=== PATIENT | female | born 1980 | race American Indian/Alaskan Native ===

== ENCOUNTER → 2021-05-11 | Outpatient (CLI) | payer MEDICAID | END | disposition home or self-care (01) | LOC: SLR 11:00 | PROVIDERS: ATTEND Surgery | DX: G47.30 Sleep apnea, unspecified (principal) | CPT/HCPCS: G0399 ==

== ENCOUNTER 2021-06-21 06:49 | Day surgery (SDC) | payer MEDICAID ==
[2021-06-21] MEDS ORDERED: SODIUM CHLORIDE 0.9% 1000 ML 1,000 ML IV SCH (07:00)
--- NOTE | 2021-06-21 07:51 | Anesthesia Consultation ---
Anesthesia Consult and Med Hx Date of service: 06/21/21 - Airway Anesthetic Teeth Evaluation: Good ROM Head & Neck: Adequate Mental/Hyoid Distance: Adequate Mallampati Class: Class I Intubation Access Assessment: Good - Pre-Operative Health Status ASA Pre-Surgery Classification: ASA3 Proposed Anesthetic Plan: MAC - Pulmonary Hx Smoking: No Hx Respiratory Symptoms: No Hx Sleep Apnea: Yes (recent diagnosis; not yet started on CPAP) - Cardiovascular System Hx Hypertension: No Hx Heart Attack/AMI: No - Central Nervous System CVA: No - Endocrine Hx Renal Disease: No Hx Liver Disease: No Hx Insulin Dependent Diabetes: No Hx Non-Insulin Dependent Diabetes: No Hx Thyroid Disease: No - Other Systems Hx Obesity: Yes (BMI 53) - Additional Comments Anesthesia Medical History Comments: No hx anesthetic complications.
--- NOTE | 2021-06-21 07:51 | Anesthesia Day of Surgery ---
Anesthesia Day of Surgery - Day of Surgery Patient Examined: Yes Patient H&P Reviewed: Yes Patient is NPO: Yes
[2021-06-21] MEDS ORDERED: LIDOCAINE MPF (2%) 20 MG/1 ML VIAL 5 ML ONE (09:18)
[2021-06-21] MEDS ORDERED: propofoL 200 MG/20 ML VIAL IV ONE (09:19)
--- NOTE | 2021-06-21 09:49 | Discharge Summary ---
Providers - Providers Date of Admission: 06/21/2021 Date of discharge: 06/21/21 Attending physician: GEGE WYATT MD Primary care physician: KIM TURCIOS MD Hospitalization Reason for admission: pre-op egd Condition: Good Procedures: egd with bx Hospital course: Pt presented for a pre-op EGD as part of planning for up coming bariatric surgery. Procedure was uneventful and pt recovered well and was discharged to home. Disposition: 01 HOME / SELF CARE / HOMELESS Final Discharge Diagnosis (Prints w/discharge instructions): hx of gastric banding, gerd, morbid obesity Core Measure Documentation - Palliative Care Palliative Care/ Comfort Measures: Not Applicable - Core Measures Any of the following diagnoses?: none Exam - Physical Exam Narrative exam: unchanged from pre-op Plan Activity: advance as tolerated Diet: low carbohydrate Follow up with: KIM TURCIOS MD [Primary Care Provider] - 7 Days
--- NOTE | 2021-06-21 09:50 | Operative Report ---
Operative Report Operative Report: DATE: 06/21/2021 SURGERY: Upper endoscopy. SURGEON: Kenroy Denton M.D. PROCEDURE: EGD with biopsy PRE OP DX: morbid obesity, GERD, hx of gastric banding POST OP DX: morbid obesity, GERD, hx of gastric banding TYPE OF ANESTHESIA: MAC. ESTIMATED BLOOD LOSS: None. COMPLICATIONS: None. SPECIMENS REMOVED: antral biopsy FINDINGS: 1. Normal banded gastric anatomy 2. gastritix INDICATIONS:INDICATION FOR PROCEDURE: Patient is a 40-year-old female with a long history of morbid obesity. He has a hx of gastric banding and increased reflux. He is having EGD to evaluate his stomach anatomy prior to planning switching to another bariatric procedure. PROCEDURE DETAILS: After consent was reviewed, patient was taken back to the operating room where patient was placed in the left lateral decubitus position and a bite block was placed in the mouth. After a time-out was called, MAC anesthesia was initiated. I then passed the endoscope into his oropharynx, into her esophagus, visualized the entire esophagus, which was all within normal limits. Z-line was noted to about 36cm from incisors. There was an expected proximal stomach narrowing from external compression from the gastric band. I then visualized the stomach and the first portion of the duodenum and there were no abnormalities I could clearly visualize. A cold forceps biopsy of the antrum was taken and will be sent to pathology to evaluate for H.pylori. I then retroflexed the scope in the stomach and visualized the underside of the band. There were no signs of band erosion or malposition. I then desufflated the stomach and removed the endoscope. Patient tolerated procedure well and was transferred to recovery room in good and stable condition.
--- NOTE | 2021-06-21 12:51 | Post Anesthesia Evaluation ---
- Post Anesthesia Evaluation Patient Participated: Yes Airway Patent: Yes Stable Respiratory Function: Yes Nausea/Vomiting: No Temp > 96.8F: Yes Pain Manageable: Yes Adequeate Hydration: Yes Anesthesia Complications: No
[2021-06-21 13:27] VITALS: BP 117/69
== END 2021-06-21 10:20 | disposition home or self-care (01) ==
LOC: GIO 06:49
PROVIDERS: ATTEND Surgery
DX: E66.01 Morbid (severe) obesity due to excess calories (principal); K21.9 Gastro-esophageal reflux disease without esophagitis; K29.50 Unspecified chronic gastritis without bleeding; K31.89 Other diseases of stomach and duodenum; B96.81 Helicobacter pylori [H. pylori] as the cause of diseases classified elsewhere; G47.30 Sleep apnea, unspecified; F17.210 Nicotine dependence, cigarettes, uncomplicated; Z88.1 Allergy status to other antibiotic agents; Z88.8 Allergy status to other drugs, medicaments and biological substances; Z79.899 Other long term (current) drug therapy; Z98.890 Other specified postprocedural states; Z68.43 Body mass index [BMI] 50.0-59.9, adult
CPT/HCPCS: 43239; 88305; 88342; J2704; J3490; J7030; J7120; Q0162

== ENCOUNTER 2021-09-26 06:09 | Inpatient (IN) | payer MEDICAID ==
[2021-09-21 09:38] LABS: Hemoglobin 12.7 gm/dl (10.1-14.3); Mean Corpuscular HGB Conc 34 % (30-34); Mean Corpuscular Volume 83 fl (79-97); Platelet Count 297 K/mm3 (140-440); Red Blood Count 4.55 M/mm3 (3.65-5.03); Red Cell Distribution Width 14.7 % (13.2-15.2)
[2021-09-21 10:02] LABS: Alanine Aminotransferase 7 units/L (7-56); Albumin 4.3 g/dL (3.9-5); Blood Urea Nitrogen 16 mg/dL (7-17); Calcium 9.3 mg/dL (8.4-10.2); Hemolysis Index 0
[2021-09-21 10:05] LABS: BUN/Creatinine Ratio 23
--- NOTE | 2021-09-21 12:51 | Anesthesia Consultation ---
Anesthesia Consult and Med Hx Date of service: 09/26/21 - Airway Anesthetic Teeth Evaluation: Good ROM Head & Neck: Adequate Mental/Hyoid Distance: Adequate Mallampati Class: Class I Intubation Access Assessment: Probably Good - Pulmonary Exam CTA: Yes - Cardiac Exam Cardiac Exam: RRR - Pre-Operative Health Status ASA Pre-Surgery Classification: ASA3 Proposed Anesthetic Plan: General - Pulmonary Hx Smoking: No Hx Respiratory Symptoms: No (recent normal PFTs) Hx Sleep Apnea: Yes (+ CPAP; moderate per sleep study) - Cardiovascular System Hx Hypertension: No Hx Heart Attack/AMI: No (recent neg ST) - Central Nervous System CVA: No - Endocrine Hx Renal Disease: No Hx Liver Disease: No Hx Insulin Dependent Diabetes: No Hx Non-Insulin Dependent Diabetes: No Hx Thyroid Disease: No - Other Systems Hx Obesity: Yes (BMI 52) - Additional Comments Anesthesia Medical History Comments: No hx anesthetic complications. Preop medical, cardiac, and pulmonary studies on chart reviewed.
[~2021-09-26 06:09] MED LIST: ENOXAPARIN 40 MG/0.4 ML INJ SUB-Q NR; GABAPENTIN 500 MG/10 ML ORAL LIQD PO NR; LACTATED RINGERS 1,000 ML IV SCH; MIDAZOLAM 2 MG/2 ML INJ IV NR; SCOPOLAMINE TRANSDERMAL PATCH 72 HR TD NR; methOCARBAMOL 1,000 MG in SODIUM CHLORIDE 0.9% 250ML 250 ML IV SCH; metroNIDAZOLE/NS 500 MG/100 ML 500 MG/100 ML BAG IV NR
[2021-09-26] MEDS ORDERED: MAGNESIUM SULFATE 2 GM/50 ML BAG IV ONE (07:27)
[2021-09-26] MEDS ORDERED: SUGAMMADEX SODIUM 200 MG/2 ML VIAL IV ONE (07:27)
[2021-09-26] MEDS ORDERED: LIDOCAINE 2%/EPINEPHRINE 1:200,000 VIAL (20 ML) INFILTRATI ONE (07:28)
[2021-09-26] MEDS ORDERED: LIDOCAINE MPF (2%) 20 MG/1 ML VIAL 5 ML ONE ×5 (07:29→08:48)
[2021-09-26] MEDS ORDERED: BUPIVACAINE/PF (0.25%) 2.5 MG/ML 30 ML VIAL INFILTRATI ONE ×2 (07:29→09:13)
[2021-09-26] MEDS ORDERED: SODIUM CHLORIDE P/F VIAL 10 ML 10 ML ONE (07:29)
[2021-09-26] MEDS ORDERED: KETAMINE/STERILE WATER 50 MG/ML SYRINGE ONE (07:29)
[2021-09-26] MEDS ORDERED: ROCURONIUM 50 MG/5 ML INJ IV ONE ×2 (07:29→08:56)
[2021-09-26] MEDS: ACETAMINOPHEN IV 1,000 MG/100 ML BOTTLE IV NR ×2 (07:30→12:27)
--- NOTE | 2021-09-26 07:30 | Anesthesia Day of Surgery ---
Anesthesia Day of Surgery - Day of Surgery Patient Examined: Yes Patient H&P Reviewed: Yes Patient is NPO: Yes
[2021-09-26] MEDS ORDERED: fentaNYL 100 MCG/2 ML INJ IV PRN (07:32)
[2021-09-26] MEDS ORDERED: ONDANSETRON 4 MG/2 ML INJ IV PRN ×2 (07:32→11:44)
[2021-09-26] MEDS ORDERED: WATER FOR IRRIG STERILE 1,000 ML BOTTLE ONE (07:54)
[2021-09-26] MEDS ORDERED: WATER FOR IRRIG STERILE 250 ML BOTTLE IR ONE (07:54)
[2021-09-26] MEDS ORDERED: ONDANSETRON 4 MG/2 ML INJ ONE (08:49)
[2021-09-26] MEDS ORDERED: dexAMETHasone 20 MG/5 ML VIAL ONE (08:49)
[2021-09-26] MEDS ORDERED: KETOROLAC 30 MG/1 ML INJ ONE (08:49)
[2021-09-26] MEDS ORDERED: LIDOCAINE 2%/EPINEPHRINE 1:100,000 VIAL (20 ML) INFILTRATI ONE (09:14)
[2021-09-26] MEDS ORDERED: WATER FOR IRRIG STERILE 1,500 ML BOTTLE IR ONE (09:15)
[2021-09-26] MEDS ORDERED: SODIUM CHLORIDE 0.9% IRRIG SOLN 2000 ML IR ONE (09:15)
[2021-09-26] MEDS ORDERED: ePHEDrine SULFATE 50 MG/1 ML INJ ONE (09:38)
[2021-09-26] MEDS ORDERED: MIDAZOLAM 2 MG/2 ML INJ ONE (09:52)
[2021-09-26] MEDS ORDERED: propofoL 200 MG/20 ML VIAL IV ONE ×3 (10:10→10:42)
[2021-09-26] MEDS ORDERED: LACTATED RINGERS 1,000 ML ONE (11:11)
[2021-09-26] MEDS ORDERED: hydrALAZINE 20 MG/1 ML INJ IV PRN (11:44)
[2021-09-26] MEDS ORDERED: METOCLOPRAMIDE 10 MG/2 ML INJ IV PRN (11:44)
[2021-09-26] MEDS ORDERED: MORPHINE 2 MG/1 ML INJ IV PRN (11:44)
--- NOTE | 2021-09-26 11:55 | Operative Report ---
Operative Report Operative Report: DATE OF PROCEDURE: 09/26/2021 SURGEON: Kenroy Denton M.D. MIRROR POLISHER: Mia Beck CSA MD PREOPERATIVE DIAGNOSIS: Morbid obesity. POSTOPERATIVE DIAGNOSES: Morbid obesity PROCEDURES PERFORMED: 1. Laparoscopic gastric bypass. 2. extensive lysis of adhesions ANESTHESIA: General endotracheal tube intubation, TAP block SPECIMENS: None. ESTIMATED BLOOD LOSS: Less than 20 mL. FINDINGS: significant scar tissue from prior surgeries COMPLICATIONS: None immediate INDICATION: Ms. Chand is a 40-year-old female with history of morbid obesity and sleep apnea who is here for bariatric surgery for weight loss. She signed informed consent and expressed understanding of risks and benefits. DESCRIPTION OF PROCEDURE: Patient was brought to the OR suite, laid in supine position. Bilateral lower extremity SCDs were placed. General anesthesia was induced via successful endotracheal tube intubation. Patient's abdomen was prepped and draped in sterile fashion. A veress needle was used to insuflate the abdomen to a pressure of 15 mmHg in the left subcostal region. Using Optiview technique, a 5- mm trocar was placed into the abdominal cavity under direct vision just superior and to the left of the umbilicus. There was noted to be no gross injury to any intraabdominal structures. 12 mm in the right mid abdomen mid clavicular line and three 5-mm trocars in the right upper quadrant, epigastric areas were placed under direct visualization. More than 45 minutes was taken to carefully lyse adhesions from previous laparoscopic gastric banding. She also had interloop small bowel adhesions in the proximal jejunum which were carefully taken down so that we could accurately identify the ligament of Treitz. She also had adhesions from her proximal stomach to the underside of the liver and to the hiatus. At this time, the ligament of Treitz identified and followed down approximately 75 cm and the jejunum was transected. The distal segment of jejunum was then traced for approximately 100 cm and a stable spee-us-wver jejunojejunostomy was performed. The common enterotomy was closed with 2 firings of the endoscopic stapler. The mesenteric defect was closed with running Surgidac suture. This anastomosis was found to be patent without kink, obstruction or bleeding. At this time, the patient was placed in steep reverse Trendelenburg position. A liver retractor was placed through the epigastric port to elevate the left lateral lobe of the liver. A small gastric pouch was formed with serial firings of the blue load on a laparoscopic stapler. The Luis Carlos limb was then brought in an antegastric antecolic fashion and secured with 2 stay sutures to the gastric pouch. After this, the enterotomies were made with Harmonic scalpel, and a xmep-es-fhqu stapled gastrojejunostomy was performed with a mechanical stapler. After this, a 2-layer running closure using absorbable V-lock suture were done, the first being mucosal approximation prior to completion of the first layer. Then I passed and an EGD scope beyond the anastomosis to act as a stent. The first layer was completed, the second was then performed. After this, the EGD was retracted slightly. A bowel clamp was placed in a proximal Luis Carlos limb. The anastomosis was submerged under saline. Via intraluminal EGD insufflation, there was noted be no bubbles in the saline indicating an airtight anastomosis. There was noted to be no obstruction or bleeding intraluminally in the pouch or the anastomosis. At this time, the scope was removed. The saline was aspirated. Vistaseal was placed over the anastomosis. A 19 Wolof round drain was placed beneath the anastomosis and exited out of the patient's right lateral port. All trocars were removed under direct visualization and the abdomen was then desufflated. A TAP block was performed using a total of 60 mL 0.25% Marcaine along bilateral mid axillary lines starting at the subcostal margin at the level of the umbilicus. The 12mm trocar site was closed using POD and a Basil Radha device for fear that after surgery it become incarcerated. The skin incisions were closed with 4-0 Monocryl followed by Dermabond dressings. Patient was awoken and taken to recovery in stable condition. All counts were correct.
[2021-09-26] MEDS: PANTOPRAZOLE 40 MG INJ IV SCH (12:28)
[2021-09-26] MEDS: KETOROLAC 30 MG/1 ML INJ IV SCH (15:48)
[2021-09-26] MEDS: SIMETHICONE 80 MG CHEW TAB PO PRN (18:45)
[2021-09-26] MEDS: metroNIDAZOLE/NS 500 MG/100 ML 500 MG/100 ML BAG IV SCH (18:46)
[2021-09-26] MEDS: LACTATED RINGERS 1,000 ML IV SCH (22:33)
[2021-09-26] MEDS: HYDROmorphone 1 MG/1 ML INJ IV PRN (22:37)
[2021-09-26] MEDS: ACETAMINOPHEN IV 1,000 MG/100 ML BOTTLE IV SCH (22:46)
[2021-09-27] MEDS: KETOROLAC 30 MG/1 ML INJ IV SCH ×5 (01:15→23:05)
[2021-09-27] MEDS: SIMETHICONE 80 MG CHEW TAB PO PRN ×4 (01:16→20:55)
[2021-09-27] MEDS: metroNIDAZOLE/NS 500 MG/100 ML 500 MG/100 ML BAG IV SCH ×2 (01:17→10:41)
[2021-09-27] MEDS: ACETAMINOPHEN IV 1,000 MG/100 ML BOTTLE IV SCH ×3 (04:00→20:00)
[2021-09-27 06:04] LABS: Basophils % (Auto) 0.2 % (0.0-1.8); Hemoglobin 11.4 gm/dl (10.1-14.3); Lymphocytes # (Auto) 1.3 K/mm3 (1.2-5.4); Lymphocytes % (Auto) 12.5 % (13.4-35.0); Mean Corpuscular HGB Conc 34 % (30-34); Mean Corpuscular Volume 83 fl (79-97); Monocytes # (Auto) 0.6 K/mm3 (0.0-0.8); Monocytes % (Auto) 5.7 % (0.0-7.3); Platelet Count 288 K/mm3 (140-440); Red Blood Count 4.08 M/mm3 (3.65-5.03); Red Cell Distribution Width 14.8 % (13.2-15.2)
[2021-09-27 06:44] LABS: Alanine Aminotransferase 7 units/L (7-56); Albumin 3.3 g/dL (3.9-5); Blood Urea Nitrogen 8 mg/dL (7-17); Calcium 8.7 mg/dL (8.4-10.2); Hemolysis Index 4
[2021-09-27 06:47] LABS: BUN/Creatinine Ratio 11
--- NOTE | 2021-09-27 10:20 | Progress Note ---
Assessment and Plan POd#1 s/p lap gastric bypass with lysis of adhesions. Pt is afebrile and stable. Taking in clear liquids very slowly. concerned pt may not get up to 30 oz today easily. Will keep overnight. Will d/c tomorrow if can increase oral intake. en courage ambulation. Subjective Date of service: 09/27/21 Narrative: no acute events overnight. Pt says she feels pretty good and is slowly taking oral fluids. Has some pain on the right side. Objective Vital Signs - 12hr 09/27/21 09/27/21 09/27/21 04:00 05:10 06:00 Temperature 97.4 F L Pulse Rate 84 Respiratory 20 Rate Blood Pressure Blood Pressure 128/82 [Left] Blood Pressure [Right] O2 Sat by Pulse 98 2 L 98 Oximetry 09/27/21 09/27/21 09/27/21 07:15 07:19 07:20 Temperature 98.4 F 98.4 F 98.4 F Pulse Rate 76 76 Respiratory 20 20 20 Rate Blood Pressure 124/78 Blood Pressure 126/78 [Left] Blood Pressure 126/78 126/78 [Right] O2 Sat by Pulse 96 96 Oximetry - General physical appearance well developed, no distress, moderate pain, obese - Respiratory normal expansion, normal respiratory effort - Abdomen soft, other (incisions c/d/i, appropriately tender to palpation) - Labs 09/27/21 05:30 09/27/21 05:30 Diabetes panel 09/27/21 Range/Units 05:30 Sodium 138 (137-145) mmol/L Potassium 4.7 (3.6-5.0) mmol/L Chloride 104.2 (98-107) mmol/L Carbon Dioxide 25 (22-30) mmol/L BUN 8 (7-17) mg/dL Creatinine 0.7 (0.6-1.2) mg/dL Glucose 106 H (65-100) mg/dL Calcium 8.7 (8.4-10.2) mg/dL AST 12 (5-40) units/L ALT 7 (7-56) units/L Alkaline Phosphatase 51 (35-129) units/L Total Protein 6.3 (6.3-8.2) g/dL Albumin 3.3 L (3.9-5) g/dL Calcium panel 09/27/21 Range/Units 05:30 Calcium 8.7 (8.4-10.2) mg/dL Albumin 3.3 L (3.9-5) g/dL Pituitary panel 09/27/21 Range/Units 05:30 Sodium 138 (137-145) mmol/L Potassium 4.7 (3.6-5.0) mmol/L Chloride 104.2 (98-107) mmol/L Carbon Dioxide 25 (22-30) mmol/L BUN 8 (7-17) mg/dL Creatinine 0.7 (0.6-1.2) mg/dL Glucose 106 H (65-100) mg/dL Calcium 8.7 (8.4-10.2) mg/dL Adrenal panel 09/27/21 Range/Units 05:30 Sodium 138 (137-145) mmol/L Potassium 4.7 (3.6-5.0) mmol/L Chloride 104.2 (98-107) mmol/L Carbon Dioxide 25 (22-30) mmol/L BUN 8 (7-17) mg/dL Creatinine 0.7 (0.6-1.2) mg/dL Glucose 106 H (65-100) mg/dL Calcium 8.7 (8.4-10.2) mg/dL Total Bilirubin 0.30 (0.1-1.2) mg/dL AST 12 (5-40) units/L ALT 7 (7-56) units/L Alkaline Phosphatase 51 (35-129) units/L Total Protein 6.3 (6.3-8.2) g/dL Albumin 3.3 L (3.9-5) g/dL
[2021-09-27] MEDS: LACTATED RINGERS 1,000 ML IV SCH ×3 (10:40→23:13)
[2021-09-27] MEDS: ENOXAPARIN 40 MG/0.4 ML INJ SUB-Q SCH (10:45)
[2021-09-27] MEDS: PANTOPRAZOLE 40 MG INJ IV SCH (10:49)
[2021-09-27] MEDS: HYDROmorphone 1 MG/1 ML INJ IV PRN (12:52)
--- NOTE | 2021-09-27 13:15 | Post Anesthesia Evaluation ---
- Post Anesthesia Evaluation Patient Participated: Yes Airway Patent: Yes Stable Respiratory Function: Yes Nausea/Vomiting: No Temp > 96.8F: Yes Pain Manageable: Yes Adequeate Hydration: Yes Anesthesia Complications: No Block Receding Appropriately: Yes Patient on Ventilator: No
[2021-09-27] MEDS: HYDROcodone/Acetaminophen 7.5-325MG-15ML ORAL LIQD PO PRN (20:54)
[2021-09-28] MEDS: KETOROLAC 30 MG/1 ML INJ IV SCH ×2 (05:15→11:26)
[2021-09-28] MEDS: SIMETHICONE 80 MG CHEW TAB PO PRN (05:15)
[2021-09-28] MEDS: LACTATED RINGERS 1,000 ML IV SCH (05:15)
[2021-09-28 06:21] LABS: Basophils # (Auto) 0.1 K/mm3 (0.0-0.1); Basophils % (Auto) 0.9 % (0.0-1.8); Eosinophils # (Auto) 0.3 K/mm3 (0.0-0.4); Eosinophils % (Auto) 4.4 % (0.0-4.3); Hematocrit 32.6 % (30.3-42.9); Hemoglobin 10.6 gm/dl (10.1-14.3); Lymphocytes # (Auto) 2.6 K/mm3 (1.2-5.4); Mean Corpuscular HGB Conc 32 % (30-34); Mean Corpuscular Volume 85 fl (79-97); Monocytes # (Auto) 0.4 K/mm3 (0.0-0.8); Monocytes % (Auto) 5.2 % (0.0-7.3); Platelet Count 249 K/mm3 (140-440); Red Blood Count 3.86 M/mm3 (3.65-5.03); Red Cell Distribution Width 15.2 % (13.2-15.2)
[2021-09-28 06:45] LABS: Alanine Aminotransferase 6 units/L (7-56); Albumin 3.2 g/dL (3.9-5); BUN/Creatinine Ratio 10; Blood Urea Nitrogen 8 mg/dL (7-17); Calcium 8.2 mg/dL (8.4-10.2); Hemolysis Index 1
--- NOTE | 2021-09-28 09:37 | Discharge Summary ---
Providers - Providers Date of Admission: 09/26/21 06:09 Date of discharge: 09/28/21 Attending physician: GEGE WYATT MD 09/26/21 11:44 Physical Therapy Evaluation and Treat [CONS] Routine Comment: Reason For Exam: s/p bariatric surgery Primary care physician: KIM TURCIOS MD Hospitalization Reason for admission: s/p bariatric surgery Condition: Good Procedures: lap gastric bypass with BARBRA Hospital course: Patient had an uneventful course status post laparoscopic gastric bypass. She remained afebrile and stable with laboratory values and vital signs within acceptable limits. Patient was slow to take in enough oral intake. By postop day 2 patient was tolerating more than 30 ounces orally without difficulty. Patient was ambulating well independently. Patient had a DOMI drain that was removed on postoperative day #2. She was discharged showing no gross clinical signs of leak or bleeding. Disposition: 01 HOME / SELF CARE / HOMELESS Final Discharge Diagnosis (Prints w/discharge instructions): morbid obesity, sl eep apnea Core Measure Documentation - Palliative Care Palliative Care/ Comfort Measures: Not Applicable - Core Measures Any of the following diagnoses?: none Exam - Constitutional Vitals: Temp Pulse Resp BP Pulse Ox 98.8 F 74 20 121/70 96 09/28/21 07:59 09/28/21 07:59 09/28/21 07:59 09/28/21 07:59 09/28/21 07:59 General appearance: Present: no acute distress, obese - EENT Eyes: Present: PERRL ENT: hearing intact - Respiratory Respiratory effort: normal - Cardiovascular Heart Sounds: Present: S1 & S2 - Extremities Extremities: no ischemia - Abdominal General gastrointestinal: Present: soft, non-distended, other (incisions c/d/i, appropriately tender to palpation) Plan Activity: advance as tolerated Diet: clear liquids Wound: open to air, keep clean and dry Follow up with: KIM TURCIOS MD [Primary Care Provider] - 7 Days
[2021-09-28] MEDS: HYDROcodone/Acetaminophen 7.5-325MG-15ML ORAL LIQD PO PRN (10:59)
[2021-09-28] MEDS: PANTOPRAZOLE 40 MG INJ IV SCH (11:01)
[2021-09-28] MEDS: ENOXAPARIN 40 MG/0.4 ML INJ SUB-Q SCH (11:01)
[2021-09-28 12:37] VITALS: BP 125/72
== END 2021-09-28 16:35 | disposition home or self-care (01) | DRG 621 ==
LOC: 3A 06:09 → 4A 11:35
PROVIDERS: ADMIT Surgery; ATTEND Surgery
PROC: 0D164ZA Bypass Stomach to Jejunum, Percutaneous Endoscopic Approach (ICD-10-PCS; principal; 2021-09-26)
PROC: 0DNW4ZZ Release Peritoneum, Percutaneous Endoscopic Approach (ICD-10-PCS; 2021-09-26)
PROC: 0DJ08ZZ Inspection of Upper Intestinal Tract, Via Natural or Artificial Opening Endoscopic (ICD-10-PCS; 2021-09-26)
DX: E66.01 Morbid (severe) obesity due to excess calories (principal); Z68.43 Body mass index [BMI] 50.0-59.9, adult; Z20.822 Contact with and (suspected) exposure to COVID-19; K66.0 Peritoneal adhesions (postprocedural) (postinfection); Z88.8 Allergy status to other drugs, medicaments and biological substances; G47.30 Sleep apnea, unspecified
CPT/HCPCS: 36415; 80053; 84703; 85025; 85027; G0378; J3490; J7120; J7121; J7517; C9113; J0131; J1100; J1170; J1650; J1885; J2250; J2405; J2704; J3475; U0003